=== PATIENT | female | born 1950 | race Asian ===

== ENCOUNTER 2017-04-15 06:53 | Day surgery (SDC) | payer OTHER ==
[2017-04-14 15:19] VITALS: BMI 31.7
[2017-04-15] MEDS ORDERED: LIDOCAINE HCL/PF 2% SDV 5ML VIAL ONE (08:03)
[2017-04-15] MEDS ORDERED: PROPOFOL 20 ML ONE ×2 (08:03)
[2017-04-15 09:31] VITALS: BP 112/84; PULSE 67; TEMP 97.6
--- NOTE | 2017-04-16 16:27 | PATH ---
Surgical Pathology Report Patient Name: MALIKA ABDI [facility]. Rec. #: [id number] /Age/Gender: 1950 (Age: 66) / F Account: [id number] Location: U-ENDOSCOPY Taken: 04/15/2017 Received: 04/15/2017 Reported: 04/16/2017 Physicians: Noel Bolden M.D. Specimen(s) Received A: BX DUODENUM B: BX ANTRUM C: RECTAL POLYP Clinical History Epigastric pain, rule out ulcer, cancer screening Atrophic gastritis, colon polyp, diverticulosis Final Diagnosis A. DUODENUM, SECOND PORTION AND BULB, BIOPSY: DUODENAL MUCOSA WITH LILLIAN'S GLANDS HYPERPLASIA. NO HISTOLOGIC EVIDENCE OF GLUTEN SENSITIVE ENTEROPATHY (CELIAC DISEASE). B. STOMACH, ANTRUM, BIOPSY: GASTRIC ANTRAL AND OXYNTIC MUCOSA WITH MODERATE CHRONIC GASTRITIS AND MILD REACTIVE GASTROPATHY. IMMUNOSTAIN FOR H. PYLORI IS NEGATIVE FOR ORGANISMS. C. RECTUM, POLYP, POLYPECTOMY: FRAGMENTS OF HYPERPLASTIC POLYP. Electronically Signed Allan Magallanes M.D. Gross Description A. Received in formalin, labeled "biopsy duodenal bulb and second portion" are 3 mcmillan, irregular portions of soft tissue averaging 0.3 cm in greatest dimension. The specimens are submitted in toto in one cassette. B. Received in formalin, labeled "biopsy antrum" are 3 mcmillan, irregular portions of soft tissue ranging from 0.1-0.6 cm in greatest dimension. The specimens are submitted in toto in one cassette. C. Received in formalin, labeled "polyp rectum" are 2 mcmillan, irregular portions of soft tissue averaging 0.3 cm in greatest dimension. The specimens are submitted in toto in one cassette. 04/15/201704/15/2017
== END 2017-04-15 09:31 | disposition home or self-care (01) ==
LOC: JASU-ENDO 06:53
PROVIDERS: ATTEND Internal Medicine Gastroenterology
PROC: 0DB98ZX Excision of Duodenum, Via Natural or Artificial Opening Endoscopic, Diagnostic (ICD-10-PCS; 2017-04-15)
PROC: 0DB68ZX Excision of Stomach, Via Natural or Artificial Opening Endoscopic, Diagnostic (ICD-10-PCS; 2017-04-15)
PROC: 0DBP8ZX Excision of Rectum, Via Natural or Artificial Opening Endoscopic, Diagnostic (ICD-10-PCS; principal; 2017-04-15 08:00)
DX: Z12.11 Encounter for screening for malignant neoplasm of colon (principal); K62.1 Rectal polyp; K57.30 Diverticulosis of large intestine without perforation or abscess without bleeding; R10.13 Epigastric pain; K31.89 Other diseases of stomach and duodenum
CPT/HCPCS: 88305-TC; 88342-TC

== ENCOUNTER 2020-04-26 14:45 | Emergency (ER) | payer OTHER | END 2020-04-26 18:29 | disposition home or self-care (01) | LOC: JVIRT 14:45 | DX: Z11.59 Encounter for screening for other viral diseases (principal) | CPT/HCPCS: C9803; G2012-GT; Q3014-GT; U0003 ==

== ENCOUNTER 2020-04-30 09:12 | Emergency (ER) | payer OTHER ==
--- NOTE | 2020-04-30 11:03 | TELE ---
HPI Do you have fever,cough or shortness of breath?: Yes - General Reason For Visit: COVID 19 TESTING Time Seen by Provider: 04/30/20 11:00 History Source: Patient Exam Limitations: No Limitations - History of Present Illness Timing/Duration: unsure Associated Symptoms: reports: denies symptoms 04/30/20 11:01 Patient with no significant past medical history present to [facility] urgent care for COVID testing for travel and. Patient reported she will be traveling to [facility] in 4 days and needs COVID test before travel. Denies any symptoms. Denies fever, shortness of breath, cough. Patient has taken COVID test few days ago but was too far out from the day of traveling would not be accepted by the country of travel. Past History - Medical History Allergies/Adverse Reactions: Allergies Allergy/AdvReac Type Severity Reaction Status Date / Time No Known Allergies Allergy Verified 04/24/15 18:54 Home Medications: Ambulatory Orders Aspirin [ASA -] 81 mg PO DAILY 04/24/15 Ezetimibe [Zetia -] 10 mg PO DAILY 04/24/15 Glipizide [Glucotrol -] 5 mg PO BID 04/24/15 metFORMIN HCL [Glucophage -] 500 mg PO BID 04/24/15 Losartan/Hydrochlorothiazide [Hyzaar 100-25 Tablet] 1 each PO HS 04/14/17 Metoprolol Tartrate 50 mg PO DAILY 04/14/17 Insulin (Levemir) [Levemir Vial] 20 units SQ HS 09/05/19 Pitavastatin Calcium [Livalo] 1 tab PO HS 09/05/19 Cardiac Disorders: (CHEST PAIN) COPD: No Diabetes: Yes (NIDDM) Dialysis: Yes Disorders: (NEPHROLITHIASIS) HTN: Yes Hypercholesterolemia: Yes - Surgical History Abdominal Surgery: Yes (TUBAL LIGATION) - Psycho-Social/Smoking History Smoking History: Never smoked Review of Systems - Review of Systems Able to Perform ROS?: Yes Limited Vincentian proficient: No Constitutional: No: Chills, Fever, Malaise HEENTM: No: Symptoms Reported, See HPI, Eye Pain, Blurred Vision, Tearing, Recent change in vision, Double Vision, Cataracts, Ear Pain, Ocular Prothesis, Ear Discharge, Nose Pain, Nose Congestion, Tinnitus, Nose Bleeding, Hearing Loss, Throat Pain, Throat Swelling, Mouth Pain, Dental Problems, Difficulty Sw allowing, Mouth Swelling, Other Cardiac (ROS): No: Symptoms Reported, See HPI, Chest Pain, Edema, Irregular Heart Rate, Lightheadedness, Palpitations, Syncope, Chest Tightness, Other ABD/GI: No: Symptoms Reported, Nausea, Vomiting Integumentary: No: Symptoms Reported All Other Systems: Reviewed and Negative *Physical Exam - Physical Exam General Appearance: Yes: Nourished, Appropriately Dressed. No: Apparent Distress HEENT: positive: Normal ENT Inspection Respiratory/Chest: negative: Respiratory Distress, Accessory Muscle Use Musculoskeletal: positive: Normal Inspection Extremity: positive: Normal Inspection, Normal Range of Motion Integumentary: positive: Normal Color Neurologic: positive: Fully Oriented, Alert, Normal Mood/Affect, Normal Response, Motor Strength 01/16 - Medical Decision Making 04/30/20 11:01 Patient with no significant past medical history present to [facility] urgent care for COVID testing for travel and. Patient reported she will be traveling to [facility] in 4 days and needs COVID test before travel. Denies any symptoms. Julius es fever, shortness of breath, cough. Patient has taken COVID test few days ago but was too far out from the day of traveling would not be accepted by the country of travel. Patient is symptomatic at this time in no acute distress. Discussed with patient self quarantine instructions. COVID tests ordered as per patient request. Patient to go to the [facility] drive-through testing center for testing. Patient stable for discharge Discharge Diagnosis at time of Disposition: Encounter by telehealth for suspected COVID-19 - Referrals Follow-up Referral(s): Claudia Pino MD [Primary Care Provider] - - Patient Instructions Discharge Instructions: [facility] Instructions, [facility] COVID-19 Isolation Protocol - Discharge Disposition: HOME Condition at time of Disposition: Stable
== END 2020-04-30 11:04 | disposition home or self-care (01) ==
LOC: JVIRT 09:12
DX: Z11.59 Encounter for screening for other viral diseases (principal)
CPT/HCPCS: Q3014-GT; U0003

== ENCOUNTER 2024-05-13 04:50 | Day surgery (SDC) | payer OTHER ==
[2024-05-11 12:21] VITALS: BMI 31.6
[2024-05-13 08:40] VITALS: TEMP 97.3
[2024-05-13 09:24] VITALS: BP 137/82; PULSE 89; RESP 24
== END 2024-05-13 09:21 | disposition home or self-care (01) ==
LOC: JASU-ENDO 04:50
PROVIDERS: ATTEND Student in an Organized Health Care Education/Training Program
PROC: 0DB68ZX Excision of Stomach, Via Natural or Artificial Opening Endoscopic, Diagnostic (ICD-10-PCS; 2024-05-13)
PROC: 0DB78ZX Excision of Stomach, Pylorus, Via Natural or Artificial Opening Endoscopic, Diagnostic (ICD-10-PCS; 2024-05-13)
PROC: 0DBK8ZX Excision of Ascending Colon, Via Natural or Artificial Opening Endoscopic, Diagnostic (ICD-10-PCS; principal; 2024-05-13 08:30)
DX: Z12.11 Encounter for screening for malignant neoplasm of colon (principal); D12.2 Benign neoplasm of ascending colon; K29.50 Unspecified chronic gastritis without bleeding; Z86.010 Personal history of colon polyps; R12 Heartburn
CPT/HCPCS: 82962; 88305-TC; 88342-TC